=== PATIENT | male | born 1970 | race Hispanic/Latino ===

== ENCOUNTER 2018-09-22 06:57 | Emergency (ER) | payer OTHER, SELFPAY ==
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
== END 2018-09-22 09:47 | disposition home or self-care (01) ==
LOC: ERS 06:57
DX: S83.91XA Sprain of unspecified site of right knee, initial encounter (principal); M79.10 Myalgia, unspecified site; Z79.899 Other long term (current) drug therapy; V89.2XXA Person injured in unspecified motor-vehicle accident, traffic, initial encounter
CPT/HCPCS: 71045; G0390